=== PATIENT | male | born 1990 | race Caucasian/White ===

== ENCOUNTER 2016-11-30 18:06 | Emergency (ER) | payer OTHER ==
[2016-11-30 18:16] VITALS: BP 152/106
[2016-11-30] MEDS ORDERED: IBUPROFEN 800 MG TABLET PO ONE (18:20)
--- NOTE | 2016-11-30 18:20 | ER Document Report ---
ED Medical Screen (RME) - General Stated Complaint: LEFT TESTICLE PAIN Mode of Arrival: Ambulatory Information source: Patient Notes: Patient presents with low left-sided back pain that radiates down into his groin. Patient reports he's had this back pain before and usually radiates to his left leg. Denies injury. Denies recent exercise.Reports pain in his left testicle when he voids. Denies swelling I have greeted and performed a rapid initial assessment of this patient. A comprehensive ED assessment and evaluation of the patient, analysis of test results and completion of the medical decision making process will be conducted by additional ED providers. TRAVEL OUTSIDE OF THE [place] IN LAST 30 DAYS: No - Related Data Allergies/Adverse Reactions: No Known Allergies Allergy (Unverified 08/05/16 17:43) Past Medical History - Past Medical History Cardiac Medical History: Reports: Hx Hypertension Psychiatric Medical History: Reports: Hx Depression - anxiety Past Surgical History: Reports: Hx Orthopedic Surgery - left foot - Immunizations Immunizations up to date: Yes Hx Diphtheria, Pertussis, Tetanus Vaccination: Yes Physical Exam - Vital signs Vitals: Temp Pulse Resp BP Pulse Ox 98.4 F 98 20 152/106 H 97 11/30/16 18:15 11/30/16 18:15 11/30/16 18:15 11/30/16 18:15 11/30/16 18:15 Course - Vital Signs Vital signs: Temp Pulse Resp BP Pulse Ox 98.4 F 98 20 152/106 H 97 11/30/16 18:15 11/30/16 18:15 11/30/16 18:15 11/30/16 18:15 11/30/16 18:15
[2016-11-30 18:51] LABS: APPEARANCE,URINE CLEAR; BILIRUBIN,URINE NEGATIVE (NEGATIVE); GLUCOSE, URINE NEGATIVE (NEGATIVE); KETONES,URINE NEGATIVE (NEGATIVE); LEUKOCYTE ESTERASE,URINE NEGATIVE (NEGATIVE); NITRITE,URINE NEGATIVE (NEGATIVE); PROTEIN,URINE NEGATIVE (NEGATIVE); URINE SPECIFIC GRAVITY 1.026; UROBILINOGEN,URINE NEGATIVE mg/dL (<2.0)
[2016-11-30] MEDS ORDERED: ACETAMINOPHEN WITH CODEINE #3 TABLET PO ONE (18:59)
--- NOTE | 2016-11-30 18:59 | ER Document Report ---
ED GI/ - General Chief Complaint: Back Pain Stated Complaint: LEFT TESTICLE PAIN Mode of Arrival: Ambulatory Notes: The patient is a 25-year-old male who presents with left testicular pain, worse when he urinates. He says the pain is constant. He was also having left lower back pain, which he has had in the past. He has a history of DDD. He is and has no concern for STD at this time. Denies hematuria, penile discharge, numbness, tingling, saddle anesthesia, change in bowel or bladder, injury or fevers. TRAVEL OUTSIDE OF THE [place] IN LAST 30 DAYS: No - Related Data Allergies/Adverse Reactions: No Known Allergies Allergy (Verified 11/30/16 18:20) Past Medical History - General Information source: Patient - Social History Smoking Status: Current Every Day Smoker Chew tobacco use (# tins/day): No Frequency of alcohol use: None Drug Abuse: None Family History: Reviewed & Not Pertinent - Past Medical History Cardiac Medical History: Reports: Hx Hypertension Renal/ Medical History: Denies: Hx Peritoneal Dialysis Psychiatric Medical History: Reports: Hx Depression - anxiety Past Surgical History: Reports: Hx Orthopedic Surgery - left foot - Immunizations Immunizations up to date: Yes Hx Diphtheria, Pertussis, Tetanus Vaccination: Yes Review of Systems - Review of Systems Notes: REVIEW OF SYSTEMS: CONSTITUTIONAL: -fevers, -chills EENT: -eye pain, -difficulty swallowing, -nasal congestion CARDIOVASCULAR:-chest pain, -syncope. RESPIRATORY: -cough, -SOB GASTROINTESTINAL: -abdominal pain, - nausea, -vomiting, -diarrhea GENITOURINARY: +testicular pain, -dysuria, -hematuria MUSCULOSKELETAL: +back pain, -neck pain SKIN: -rash or skin lesions. HEMATOLOGIC: -easy bruising or bleeding. LYMPHATIC: -swollen, enlarged glands. NEUROLOGICAL: -altered mental status or loss of consciousness, -headache, - neurologic symptoms PSYCHIATRIC: -anxiety, -depression. ALL OTHER SYSTEMS REVIEWED AND NEGATIVE. Physical Exam - Vital signs Vitals: Temp Pulse Resp BP Pulse Ox 98.4 F 98 20 152/106 H 97 11/30/16 18:15 11/30/16 18:15 11/30/16 18:15 11/30/16 18:15 11/30/16 18:15 - Notes Notes: PHYSICAL EXAMINATION: GENERAL: Well-appearing, well-nourished and in no acute distress. HEAD: Atraumatic, normocephalic. EYES: Pupils equal round and reactive to light, extraocular movements intact, sclera anicteric, conjunctiva are normal. ENT: nares patent, oropharynx clear without exudates. Moist mucous membranes. NECK: Normal range of motion, supple without lymphadenopathy LUNGS: Breath sounds clear to auscultation bilaterally and equal. No wheezes rales or rhonchi. HEART: Regular rate and rhythm without murmurs ABDOMEN: Soft, nontender, normoactive bowel sounds. No guarding, no rebound. No masses appreciated. : Tender left testicle, normal lie, no penile discharge or sores EXTREMITIES: Mild left paraspinal tenderness, normal range of motion, no pitting or edema. No cyanosis. NEUROLOGICAL: Cranial nerves grossly intact. Normal speech, normal gait. Normal sensory, motor, and reflex exams. PSYCH: Normal mood, normal affect. SKIN: Warm, Dry, normal turgor, no rashes or lesions noted. Course - Re-evaluation Re-evalutation: Patient sent immediately to ultrasound on arrival to the emergency room to assess for torsion. Urine does not show any evidence of hematuria or UTI. Patient's symptoms atypical for kidney stones. His back pain is chronic in nature and he has had this in the past. No red flag signs for low back pain at this time. 11/30/16 19:25 US shows left-sided varicocele and no evidence of torsion. Instructed patient about symptomatic treatment and following up with urology. Given return precautions and he understands. - Vital Signs Vital signs: Temp Pulse Resp BP Pulse Ox 98.4 F 98 20 152/106 H 97 11/30/16 18:15 11/30/16 18:15 11/30/16 18:15 11/30/16 18:15 11/30/16 18:15 - Diagnostic Test Radiology reviewed: Image reviewed, Reports reviewed Radiology results interpreted by me: US Scrotum: Left-sided varicocele Discharge - Discharge Clinical Impression: Left varicocele Back pain Qualifiers: Back pain location: low back pain Chronicity: chronic Back pain laterality: left Sciatica presence: without sciatica Qualified Code(s): M54.5 - Low back pain; G89.29 - Other chronic pain Condition: Good Disposition: HOME, SELF-CARE Additional Instructions: A varicocele is an abnormal enlargement of the veins in the scrotum. Wear briefs and use anti-inflammatories to help any pain. Follow-up with the urologist for further evaluation and treatment. LOW BACK PAIN: Three out of every four people will have an episode of disabling back pain during their lifetime. Most commonly the pain is due to straining of the muscles and ligaments in the low back. Usual treatment includes: (1) Rest on a firm surface. Avoid lying on your stomach. (2) Ice pack the painful area. After a few days, gentle heat may be used intermittently to relax the area, or ice packs can be continued. (3) Medication may be needed -- muscle relaxers and antiinflammatory medicines are commonly used. (4) As the back improves, exercises are prescribed to strengthen the back and abdominal muscles. Your doctor will advise you on the proper care for your back at each stage in your recovery. You may be better in a few days -- or healing may take several weeks. If new symptoms of a "herniated disc" (radiation of pain, numbness, or tingling down the back of the leg or weakness in the leg) occur, you should be re-examined. Further testing may be necessary. ORAL NARCOTIC MEDICATION: You have been given a prescription for pain control. This medication is a narcotic. It's best taken with food, as nausea can result if taken on an empty stomach. Don't operate machinery or drive within six hours of taking this medication. Do not combine this medicine with alcohol, or with any medication which can cause sedation (such as cold tablets or sleeping pills) unless you get permission from the physician. Narcotics tend to cause constipation. If possible, drink plenty of fluids and eat a diet high in fiber and fruits. Please be aware that prescription narcotics also have the potential for abuse. People become addicted to these medications because of the general sense of wellbeing that they induce. This feeling along with a significant reduction in tension, anxiety, and aggression provides a stimulating seductive quality to these drugs. Once your pain is under control, we encourage you to discard your unused narcotics. ICE PACKS: Apply ice packs frequently against the painful area. Many different schedules are recommended, such as "20 minutes on, 20 minutes off" or "one hour ice, two hours rest." If you need to work, you may need to go longer between ice treatments. You should plan to have the area ice packed AT LEAST one fourth of the time. The ice should be applied over the wrap, tape, or splint, or over a layer of cloth -- not directly against the skin. Some ice bags have a built-in cloth and can be put directly on the skin. WARM PACKS: After approximately two days, apply gentle heat (such as a heating pad or hot water bottle) for about 20 to 30 minutes about every two hours -- at least four times daily. Warmth and elevation will help you make a more rapid recovery , and will ease the pain considerably. Do not use HOT heat, and never apply heat for longer than 30 minutes. The continuous heat can invisibly damage skin and muscles -- even when no burn is seen on the surface. Damaged muscles can make you MORE sore. FOLLOW-UP CARE: If you have been referred to a physician for follow-up care, call the physician s office for an appointment as you were instructed or within the next two days. If you experience worsening or a significant change in your symptoms, notify the physician immediately or return to the Emergency Department at any time for re-evaluation. Prescriptions: Acetaminophen with Codeine [Tylenol #3 Tablet] 1 each PO Q4HP PRN #14 tablet PRN Reason: Referrals: [facility] [Provider Group] - Follow up as needed
== END 2016-11-30 20:15 | disposition home or self-care (01) ==
LOC: ER 18:06
DX: I86.1 Scrotal varices (principal); G89.29 Other chronic pain; M54.5 Low back pain; N50.812 Left testicular pain; F17.200 Nicotine dependence, unspecified, uncomplicated; I10 Essential (primary) hypertension
CPT/HCPCS: 76870; 81001; 93976; 99284

== ENCOUNTER 2017-10-23 04:48 | Emergency (ER) | payer OTHER ==
[2017-10-23] MEDS ORDERED: ONDANSETRON HCL INJ/PF 4 MG/2 ML SDV IV ONE (05:06)
[2017-10-23] MEDS ORDERED: KETOROLAC TROMETHAMINE INJ/PF 30 MG/1 ML SDV IV ONE (05:06)
[2017-10-23] MEDS ORDERED: NORMAL SALINE 1000 ML 1,000 ML IV ONE ×2 (05:06→06:22)
--- NOTE | 2017-10-23 05:07 | ER Document Report ---
ED General - General Chief Complaint: Flu Symptoms Stated Complaint: BODY PAINS, FEVER Time Seen by Provider: 10/23/17 04:57 Notes: Patient is a 26-year-old male that comes emergency department for chief complaint of 3 days of chills, sweats, and feeling like he is running fevers. He states he has body aches. He also states he has pain in his mid upper abdomen that goes around to his back occasionally. He denies vomiting, nausea, cough, congestion, dysuria, discharge. He has been exposed to someone who had vomiting (family member). He had a hard bowel movement a few days ago. He is on Suboxone, takes senna but has difficulty with his bowels in general. He denies any surgeries. TRAVEL OUTSIDE OF THE [place] IN LAST 30 DAYS: No - Related Data Allergies/Adverse Reactions: No Known Allergies Allergy (Verified 11/30/16 18:20) Past Medical History - General Information source: Patient - Social History Smoking Status: Never Smoker Frequency of alcohol use: None Drug Abuse: None Lives with: Family Family History: Reviewed & Not Pertinent - Past Medical History Cardiac Medical History: Reports: Hx Hypertension Renal/ Medical History: Denies: Hx Peritoneal Dialysis Psychiatric Medical History: Reports: Hx Depression - anxiety Past Surgical History: Reports: Hx Orthopedic Surgery - left foot - Immunizations Immunizations up to date: Yes Hx Diphtheria, Pertussis, Tetanus Vaccination: Yes Review of Systems - Review of Systems Constitutional: See HPI EENT: No symptoms reported Cardiovascular: No symptoms reported Respiratory: No symptoms reported Gastrointestinal: See HPI Genitourinary: No symptoms reported Male Genitourinary: No symptoms reported Musculoskeletal: No symptoms reported Skin: No symptoms reported Hematologic/Lymphatic: No symptoms reported Neurological/Psychological: No symptoms reported Physical Exam - Vital signs Vitals: Temp Pulse Resp BP Pulse Ox 99.6 F 120 H 18 140/82 H 96 10/23/17 04:48 10/23/17 04:48 10/23/17 04:48 10/23/17 04:48 10/23/17 04:48 Interpretation: Normal - General General appearance: Appears well, Alert In distress: None - Alert and well-appearing - HEENT Head: Normocephalic, Atraumatic Eyes: Normal Conjunctiva: Normal Extraocular movements intact: Yes Eyelashes: Normal Pupils: PERRL Ears: Normal External canal: Normal Tympanic membrane: Normal Sinus: Normal Nasal: Normal Mucous membranes: Dry - Dry mucous membranes and lips Pharynx: Normal Neck: Normal - Respiratory Respiratory status: No respiratory distress Chest status: Nontender Breath sounds: Normal. No: Decreased air movement, Wheezing Chest palpation: Normal - Cardiovascular Rhythm: Regular, Tachycardia Heart sounds: Normal auscultation, S1 appreciated, S2 appreciated Murmur: No - Abdominal Inspection: Normal Distension: No distension. No: Distended Bowel sounds: Normal Tenderness: Nontender. No: Tender, McBurney's point, Cai's sign, Guarding, Rebound Organomegaly: No organomegaly - Back Back: Normal, Nontender - Extremities General upper extremity: Normal inspection, Nontender, Normal color, Normal ROM , Normal temperature General lower extremity: Normal inspection, Nontender, Normal color, Normal ROM , Normal temperature, Normal weight bearing. No: Yessy's sign - Neurological Neuro grossly intact: Yes Cognition: Normal Orientation: AAOx4 [place] Coma Scale Eye Opening: Spontaneous Maria Alejandra Coma Scale Verbal: Oriented [place] Coma Scale Motor: Obeys Commands [place] Coma Scale Total: 15 Speech: Normal Motor strength normal: LUE, RUE, LLE, RLE Sensory: Normal - Psychological Associated symptoms: Normal affect, Normal mood - Skin Skin Temperature: Warm Skin Moisture: Dry Skin Color: Normal Course - Re-evaluation Re-evalutation: Patient tachycardic and dry appearing on exam but he does not appear to be in any distress, his abdomen is actually very soft with no tenderness. Clear lungs. No nuchal rigidity. CBC unremarkable, patient most likely has a viral illness. Chemistry shows mildly elevated LFTs with AST less than ALT, patient has been taking a lot of Tylenol over the past few days (he confirmed when I asked), I suspect this is the cause because he has absolutely no right upper quadrant tenderness on examination. X-ray showing retained stool but no obstruction or ileus, no free air. Patient is already on a stool softener, he states he is going to be getting off the Suboxone because he has had trouble with his bowels ever since he was on it. On my reevaluation patient had resolution of tachycardia on auscultation, continues to be well-appearing. Patient states he is ready to go home, states he feels great after medications, once the same medication at home, I did agree to give him some Toradol at home. Discussed follow-up and return precautions in detail. Patient states understanding and agreement. - Vital Signs Vital signs: Temp Pulse Resp BP Pulse Ox 99.3 F 120 H 18 140/82 H 96 10/23/17 06:43 10/23/17 04:48 10/23/17 04:48 10/23/17 04:48 10/23/17 04:48 - Laboratory Result Diagrams: 10/23/17 05:30 10/23/17 05:30 Laboratory results interpreted by me: 10/23/17 10/23/17 10/23/17 05:30 05:30 06:06 MCV 79 L Glucose 136 H AST 68 H ALT 120 H Alkaline Phosphatase 137 H Urine Protein 30 H Urine Urobilinogen 2.0 H Discharge - Discharge Clinical Impression: Body aches, Chills, Tachycardia, Dehydration Abdominal pain Qualifiers: Abdominal location: unspecified location Qualified Code(s): R10.9 - Unspecified abdominal pain Disposition: HOME, SELF-CARE Additional Instructions: Your symptoms, examination, and workup are most consistent with a viral syndrome. Chest x-ray does not show pneumonia, abdominal x-ray shows some retained stool but no obstructive or concerning findings. Your liver enzymes are slightly elevated, avoid alcohol and Tylenol for at least the next few days. You can take ibuprofen or the prescribed medication for fever and body aches instead. Stay hydrated. Take Phenergan prescribed if needed for nausea. Continue stool softener. Return if you worsen including vomiting, severe abdominal pain, or any other concerning symptoms. Prescriptions: Ketorolac Tromethamine [Toradol 10 mg Tablet] 10 mg PO Q8 PRN #24 tablet PRN Reason: Promethazine HCl [Phenergan 25 mg Tablet] 1 - 2 tab PO Q6H PRN #20 tablet PRN Reason:
[2017-10-23 05:51] LABS: ABSOLUTE EOSINOPHILS # (AUTO) 0.2 10^3/uL (0.0-0.6); ABSOLUTE MONOCYTES (AUTO) 0.4 10^3/uL (0.1-1.4); ABSOLUTE NEUT (AUTO) 2.8 10^3/uL (1.7-8.2); BASOPHILS % (AUTO) 0.5 % (0-2); EOSINOPHILS % (AUTO) 5.5 % (0-6); HEMOGLOBIN 13.9 g/dL (13.5-17.0); MEAN CORPUSCULAR HEMOGLOBIN 27.5 pg (27.0-33.4); MEAN CORPUSCULAR HGB CONC 34.7 g/dL (32.0-36.0); MEAN CORPUSCULAR VOLUME 79 fl (80-97); MONOCYTES % (AUTO) 8.7 % (3-13); PLATELET COUNT 155 10^3/uL (150-450); RED BLOOD COUNT 5.05 10^6/uL (4.35-5.55); RED CELL DISTRIBUTION WIDTH 12.5 % (11.5-14.0); SEGMENTED NEUTROPHILS % (AUTO) 62.3 % (42-78); TOTAL CELLS COUNTED % (AUTO) 100 %; WHITE BLOOD COUNT 4.5 10^3/uL (4.0-10.5)
[2017-10-23 06:20] LABS: APPEARANCE,URINE SLIGHTLY-CLOUDY; BILIRUBIN,URINE NEGATIVE (NEGATIVE); GLUCOSE, URINE NEGATIVE (NEGATIVE); KETONES,URINE NEGATIVE (NEGATIVE); LEUKOCYTE ESTERASE,URINE NEGATIVE (NEGATIVE); NITRITE,URINE NEGATIVE (NEGATIVE); PROTEIN,URINE 30 mg/dL (NEGATIVE); URINE SPECIFIC GRAVITY 1.033
[2017-10-23 06:21] LABS: COLOR,URINE DARK YELLOW
[2017-10-23 06:21] LABS: ALANINE AMINOTRANSFERASE 120 U/L (21-72); ALBUMIN 4.5 g/dL (3.5-5.0); ALKALINE PHOSPHATASE 137 U/L (38-126); ANION GAP 14 (5-19); ASPARTATE AMINO TRANSFERASE 68 U/L (17-59); BILIRUBIN,DIRECT 0.1 mg/dL (0.0-0.4); BILIRUBIN,TOTAL 0.4 mg/dL (0.2-1.3); BLOOD UREA NITROGEN 12 mg/dL (7-20); CALCIUM 9.7 mg/dL (8.4-10.2); CARBON DIOXIDE 24 mmol/L (22-30); CHLORIDE 100 mmol/L (98-107); GLUCOSE 136 mg/dL (75-110); LIPASE 35.2 U/L (23-300); POTASSIUM 4.1 mmol/L (3.6-5.0); SODIUM 138.1 mmol/L (137-145); TOTAL PROTEIN 7.1 g/dL (6.3-8.2)
--- NOTE | 2017-10-23 06:29 | RADIOLOGY REPORT (SQ) ---
EXAM DESCRIPTION: ACUTE ABDOMEN SERIES CLINICAL HISTORY: 26 years, Male, abd pain, no recent bowel movement, chills COMPARISON: None. TECHNIQUE: 4 LIMITATIONS: None. FINDINGS: No acute cardiopulmonary findings. Paucity of bowel gas. No obstruction or perforation. Intact bony structures. IMPRESSION: No acute findings.
[2017-10-23 07:27] VITALS: BP 120/69
== END 2017-10-23 07:27 | disposition home or self-care (01) ==
LOC: ER 04:48
DX: K59.00 Constipation, unspecified (principal); E86.0 Dehydration; R79.89 Other specified abnormal findings of blood chemistry; R10.10 Upper abdominal pain, unspecified; R00.0 Tachycardia, unspecified; R68.83 Chills (without fever); R61 Generalized hyperhidrosis; I10 Essential (primary) hypertension; Z79.891 Long term (current) use of opiate analgesic; Z79.899 Other long term (current) drug therapy
CPT/HCPCS: 99284; 96361; 96374; 96375; 36415; 83690; 85025; 80053; 81001; 74022; J1885; J2405; J7030

== ENCOUNTER 2018-10-27 01:22 | Emergency (ER) | payer OTHER ==
[2018-10-27 01:31] VITALS: BP 163/103
[2018-10-27] MEDS ORDERED: PROMETHAZINE HCL INJ 25 MG/1 ML VIAL IV ONE (04:32)
[2018-10-27] MEDS ORDERED: NORMAL SALINE 1000 ML 1,000 ML IV ONE (04:32)
[2018-10-27 05:12] LABS: ABSOLUTE BASOPHILS # (AUTO) 0.1 10^3/uL (0.0-0.2); ABSOLUTE EOSINOPHILS # (AUTO) 0.2 10^3/uL (0.0-0.6); ABSOLUTE LYMPHOCYTES (AUTO) 3.1 10^3/uL (0.5-4.7); ABSOLUTE MONOCYTES (AUTO) 0.5 10^3/uL (0.1-1.4); ABSOLUTE NEUT (AUTO) 4.6 10^3/uL (1.7-8.2); BASOPHILS % (AUTO) 0.6 % (0-2); EOSINOPHILS % (AUTO) 2.5 % (0-6); HEMATOCRIT 41.3 % (37.9-51.0); HEMOGLOBIN 14.2 g/dL (13.5-17.0); LYMPHOCYTES % (AUTO) 36.3 % (13-45); MEAN CORPUSCULAR HEMOGLOBIN 28.6 pg (27.0-33.4); MEAN CORPUSCULAR HGB CONC 34.4 g/dL (32.0-36.0); MEAN CORPUSCULAR VOLUME 83 fl (80-97); MONOCYTES % (AUTO) 6.4 % (3-13); PLATELET COUNT 264 10^3/uL (150-450); RED BLOOD COUNT 4.97 10^6/uL (4.35-5.55); RED CELL DISTRIBUTION WIDTH 13.8 % (11.5-14.0); SEGMENTED NEUTROPHILS % (AUTO) 54.2 % (42-78); TOTAL CELLS COUNTED % (AUTO) 100 %; WHITE BLOOD COUNT 8.5 10^3/uL (4.0-10.5)
[2018-10-27 05:28] LABS: ALANINE AMINOTRANSFERASE 28 U/L (21-72); ALBUMIN 4.9 g/dL (3.5-5.0); ALKALINE PHOSPHATASE 94 U/L (38-126); ANION GAP 15 (5-19); ASPARTATE AMINO TRANSFERASE 19 U/L (17-59); BILIRUBIN,DIRECT 0.2 mg/dL (0.0-0.4); BILIRUBIN,TOTAL 0.2 mg/dL (0.2-1.3); BLOOD UREA NITROGEN 14 mg/dL (7-20); CALCIUM 8.8 mg/dL (8.4-10.2); CARBON DIOXIDE 24 mmol/L (22-30); CHLORIDE 105 mmol/L (98-107); GLUCOSE 97 mg/dL (75-110); SODIUM 143.5 mmol/L (137-145); TOTAL PROTEIN 7.2 g/dL (6.3-8.2)
--- NOTE | 2018-10-27 06:32 | ER Document Report ---
ED General - General TRAVEL OUTSIDE OF THE [place] IN LAST 30 DAYS: No <MAXIMUS DOMINGUEZ - Last Filed: 10/27/18 07:02> <VALERIE FARFAN - Last Filed: 10/27/18 12:36> <EVA GORE - Last Filed: 10/27/18 12:46> - General Chief Complaint: Drug Abuse Stated Complaint: NAUSEA Time Seen by Provider: 10/27/18 04:31 [facility] Care Provider: [facility] [Primary [facility] Provider] - Follow up as needed Notes: Patient is a 27-year-old male presents to the emergency department for generalized nausea, insomnia, body aches, what he describes as "withdrawal symptoms." Patient states he does have an extensive history of opiate abuse. States he was doing a at home detox with a friend's methadone from September 08 - October 09. States he recently relapsed and used oxycodone as recently as yesterday. Patient states he is trying to get into a detox program [facility] the [facility] starting on November 02. States this evening he was feeling very nauseated, had general body aches, and insomnia. Patient states he did not know where to go which is why he presents to the emergency room. Past medical history: None Medications: None Allergies: None (MAXIMUS DOMINGUEZ) - Related Data Allergies/Adverse Reactions: No Known Allergies Allergy (Verified 10/27/18 09:35) Past Medical History - General Information source: Patient - Social History Smoking Status: Current Every Day Smoker Chew tobacco use (# tins/day): No Frequency of alcohol use: Occasional Drug Abuse: Prescription drugs Family History: Reviewed & Not Pertinent Patient has suicidal ideation: No Patient has homicidal ideation: No - Past Medical History Cardiac Medical History: Reports: Hx Hypertension Renal/ Medical History: Denies: Hx Peritoneal Dialysis Psychiatric Medical History: Reports: Hx Depression - anxiety Past Surgical History: Reports: Hx Orthopedic Surgery - left foot - Immunizations Immunizations up to date: Yes Hx Diphtheria, Pertussis, Tetanus Vaccination: Yes <MAXIMUS DOMINGUEZ - Last Filed: 10/27/18 07:02> Review of Systems - Review of Systems Constitutional: See HPI EENT: No symptoms reported Cardiovascular: No symptoms reported Respiratory: No symptoms reported Gastrointestinal: See HPI Genitourinary: No symptoms reported Male Genitourinary: No symptoms reported Musculoskeletal: No symptoms reported Skin: No symptoms reported Hematologic/Lymphatic: No symptoms reported Neurological/Psychological: See HPI <ROMERO DOMINGUEZCASICEZAR - Last Filed: 10/27/18 07:02> Physical Exam <ROMERO DOMINGUEZCASICEZAR - Last Filed: 10/27/18 07:02> - Vital signs Vitals: Temp Pulse Resp BP Pulse Ox 97.7 F 113 H 16 163/103 H 99 10/27/18 01:25 10/27/18 01:25 10/27/18 01:25 10/27/18 01:25 10/27/18 01:25 - Notes Notes: GENERAL: Alert, interacts well. No acute distress. HEAD: Normocephalic, atraumatic. EYES: Pupils equal, round, and reactive to light. Extraocular movements intact. ENT: Oral mucosa moist, tongue midline. NECK: Full range of motion. Supple. Trachea midline. LUNGS: Clear to auscultation bilaterally, no wheezes, rales, or rhonchi. No respiratory distress. HEART: Tachycardic rate and rhythm. No murmur ABDOMEN: Soft, non-tender. Non-distended. Bowel sounds present in all 4 quadrants. EXTREMITIES: Moves all 4 extremities spontaneously. No edema, normal radial and dorsalis pedis pulses bilaterally. No cyanosis. BACK: no cervical, thoracic, lumbar midline tenderness. No saddle anesthesia, normal distal neurovascular exam. NEUROLOGICAL: Alert and oriented x3. Normal speech. cranial nerves II through XII grossly intact PSYCH: Normal affect, normal mood. SKIN: Warm, dry, normal turgor. No rashes or lesions noted. (ANGELICAMAXIMUS) Course - Laboratory Result Diagrams: 10/27/18 04:57 10/27/18 04:57 <MINDY DOMINGUEZKAYLEY - Last Filed: 10/27/18 07:02> - Laboratory Result Diagrams: 10/27/18 04:57 10/27/18 04:57 <VALERIE FARFAN - Last Filed: 10/27/18 12:36> - Laboratory Result Diagrams: 10/27/18 04:57 10/27/18 04:57 <EVA GORE - Last Filed: 10/27/18 12:46> - Re-evaluation Re-evalutation: Patient's CBC and CMP are unremarkable. Patient was treated with normal saline solution and antiemetics. Patient states he is no longer nauseous but is worried that he is going to find prescription medications and take them if he leaves this facility. Patient is denying SI and HI. Patient is stable for discharge. Discussed with him consulting with our psych staff in hopes to potentially get him into a rehab facility. Patient is appreciative of this. 10/27/18 06:41 Patient is currently sleeping, awaiting psych evaluation and attempts to have the patient placed in a detox facility. (MAXIMUS DOMINGUEZ) - Vital Signs Vital signs: Temp Pulse Resp BP Pulse Ox 97.7 F 113 H 16 163/103 H 99 10/27/18 01:25 10/27/18 01:25 10/27/18 01:25 10/27/18 01:25 10/27/18 01:25 Discharge <MAXIMUS DOMINGUEZ - Last Filed: 10/27/18 07:02> <VALERIE FARFAN - Last Filed: 10/27/18 12:36> <EVA GORE - Last Filed: 10/27/18 12:46> - Discharge Clinical Impression: Acute drug withdrawal syndrome Qualifiers: Complication of substance-induced condition: uncomplicated Qualified Code(s): F19.230 - Other psychoactive substance dependence with withdrawal, uncomplicated Condition: Stable Disposition: HOME, SELF-CARE Additional Instructions: You have been evaluated and assessed at [facility] Emergency Department by both the medical and behavioral health teams after presenting for concerns of relapse on opiates and are now deemed appropriate for discharge. Mobile crisis resources were provided to you for when these situations arise as well as NA contact froylan roberts. While in the ED, you received an initial medical screening, lab work, EKG, medications, direct staff observation, clinical evaluation, physician assessment, and outpatient resources. You were cleared from both services and record review revealed a history of substance abuse. You are encouraged to follow up with your S/A provider at [facility], utilize mobile crisis services and NA as needed, [facility] Depression Your evaluation reveals that you may have mental depression. While symptoms may be vague, they often include disturbance of sleep, fatigue, loss of appetite, and general loss of interest in life. While depression may be a side effect of drugs, or a reaction to a major change in your life, many cases have no known cause. If depression is acute, and related to a major loss in your life, you can expect it to clear completely with time. If you have been depressed a long time, are prone to repeated bouts of depression or low mood, or have been thinking of suicide, get help. Depression can be treated with anti-depressant medication and counselling. Long-term depression will often take a few weeks to clear, even with appropriate medication. Follow-up care is important. Contact your physician, the hospital emergency center, crisis line, or your counsellor if you are losing control or having self-destructive thoughts. Referrals: [facility] [Primary Care Provider] - Follow up as needed
--- NOTE | 2018-10-27 11:22 | ER Document Report ---
Doctor's Note Notes: 10/27/18 11:21 Rounds: Chart reviewed and patient interviewed. Patient is here for nausea, body aches, and insomnia which she attributes to opiate withdrawal. He wishes to go through detox. L vital signs show a heart rate of 113 blood pressure 163/103. Otherwise vital signs are normal. Labs are unremarkable. Patient appears to be medically stable for transfer or discharge. Cassidy Garrison MD
--- NOTE | 2018-10-29 14:52 | PSYCHOLOGICAL NOTE ---
Psych Note - Psych Note Date seen by psych provider: 10/27/18 Time seen by psych provider: 10:30 Psych Note: Reason for consult: S/A Contact Permissions: Sunita Lopez [phone] Patient is a 27 yo male presenting to the ED voluntarily for assistance with opiate dependence/recovery. Chart review shows no prior psych visits. Patient reports he is trying to stay clean until he does his intake for [facility] through the [place]. according to patient he was in methadone replacement treatment with [facility] from 09/08/17 - 10/09/18 and terminated treatment because he got a new counselor who was nodding off at the computer. Patient believed the counselor to be using. Shortly after terminating treatment, he relapsed buying Percocet off the street. Patient denies SI and reports "some depression" though attributes this to not sleeping well. Diagnosis endorsed are PTSD, and MDD and patient has one IP at [facility] for 5 days and then transfer to [facility] for 30 days after a suicide attempt which he prefers not to talk about. He is not currently on any medication an does not feel he needs to be. He has taken Cymbalta in the past with [facility] at [facility]. Patient is , currently in college and working PT at [employer]. Patient is alert and oriented x 4. Mood is "I don't know" with flat affect. Patient denies SI, HI, and AV/H, does not appear to be responding to internal stimuli, and no delusions were noted. Conversational speech was WNL for rate, tone, and prosody. Eye contact was well maintained. Immediate and remote memory were good. Thought processes were linear, organized, and rational. Intellectual abilities were estimated within the average range. Attention/concentration was WNL while, insight, judgment, and impulse control were good. Diagnosis: 304.00 F11.20 Opioid Use Disorder, per patient hx 309.81 F43.10 Posttraumatic Stress Disorder, per patient hx Major Depressive Disorder, per patient hx Medication recommendations as per psychiatric provider, Dr. Ramos are as follows: No medication recommendations at this time Impression/Plan: Patient is psychiatrically clear from acute psychiatric services as there is no risk of harm to self or others aeb patient denies SI, HI, and AV/H, does not appear to be responding to internal stimuli, and no delusions were noted. Patient is a 27 yo male presenting to the ED voluntarily for assistance with opiate recovery. Plan is for patient to discharge to his who he identifies as his primary support with soft handoff to [facility] to follow as he awaits intake at [facility] on 11/02/18 through the [facility]. Patient is also recommended to follow up with his substance abuse provider at [facility] as he discontinued his opiate replacement therapy on 10/09/18 and has relapsed. He was also given resources with NA. Patient verbalized understanding and agreement with the plan of care. Consulted Dr. Gu in the care and treatment of this patient and ED physician who is in agreement with disposition and recommendation.
== END 2018-10-27 12:54 | disposition home or self-care (01) ==
LOC: ER 01:22
DX: R11.0 Nausea (principal); M79.10 Myalgia, unspecified site; G47.00 Insomnia, unspecified; F11.20 Opioid dependence, uncomplicated; F43.10 Post-traumatic stress disorder, unspecified
CPT/HCPCS: 99284; 96361; 96374; 36415; 85025; 80053; J2550; J7030